=== PATIENT | male | born 1955 | race Caucasian/White ===

== ENCOUNTER 2017-08-30 10:30 | Inpatient (IN) | payer BC ==
[~2017-08-30] VITALS: Ht 182.9 cm; Wt 97.5 kg
[2017-08-30 11:59] LABS: CHLORIDE 109 mEq/L (99-109); POTASSIUM 4.5 mEq/L (3.7-5.4); SODIUM 144 mEq/L (136-147)
[2017-08-30 12:01] LABS: GLUCOSE 214 mg/dL (70-99); HEMATOCRIT 32.1 % (38.0-50.0); HEMOGLOBIN 9.9 G/DL (12.5-16.6); MCH 20.3 PG (29.0-34.0); MCHC 30.8 G/DL (30.0-36.0); MCV 65.9 FL (86-99); PLATELET COUNT 145 K/uL (156-360); RBC DIS.WIDTH-SD 36.2 % (39-53); RED BLOOD COUNT 4.87 M/uL (4.00-5.50); WHITE BLOOD COUNT 9.5 K/uL (4.1-10.2)
[2017-08-30 12:05] LABS: CREATININE 1.7 mg/dL (0.6-1.3); GFR ESTIMATE (CALCULATED) 43 mL/min/ (58.99-99999)
[2017-08-30 12:06] LABS: UREA NITROGEN (BUN) 32 mg/dL (9-23)
[2017-08-30 12:56] LABS: INTER. NORMALIZED RATIO 1.1
[2017-08-30 13:12] LABS: ALBUMIN 4.3 g/dL (3.2-4.8); CHLORIDE 110 mEq/L (99-109); POTASSIUM 4.4 mEq/L (3.7-5.4); SODIUM 144 mEq/L (136-147)
[2017-08-30 13:14] LABS: GLUCOSE 180 mg/dL (70-99); TOTAL PROTEIN 6.8 g/dL (6.4-8.3)
[2017-08-30 13:16] LABS: TOTAL BILIRUBIN 0.7 mg/dL (0.0-1.0)
[2017-08-30 13:18] LABS: ALKALINE PHOSPHATASE 73 IU/L (3-129); CREATININE 1.6 mg/dL (0.6-1.3); GFR ESTIMATE (CALCULATED) 47 mL/min/ (58.99-99999)
[2017-08-30 13:19] LABS: UREA NITROGEN (BUN) 31 mg/dL (9-23)
[2017-08-30 13:20] LABS: AST (GOT) 24 IU/L (2-34)
[2017-08-30 13:21] LABS: ALT (GPT) 26 IU/L (3-49)
[2017-08-30] MEDS ORDERED: TACROLIMUS ANH0.5 MG PO (14:27)
[2017-08-30] MEDS ORDERED: FOLIC ACID1 MG PO (14:28)
[2017-08-30] MEDS ORDERED: ROSUVASTATIN CA10 MG PO (14:28)
[2017-08-30] MEDS ORDERED: AMLODIPINE BESY10 MG PO (14:29)
[2017-08-30] MEDS ORDERED: METFORMIN HCL500 MG PO (14:29)
[2017-08-30] MEDS ORDERED: MULTIVITAMIN1 EAC2 PO (14:30)
[2017-08-30] MEDS ORDERED: ASPIRIN81 M2 PO (14:30)
[2017-08-30] MEDS ORDERED: PRILOSEC20 MG PO (14:31)
[2017-08-30 16:22] LABS: HEMATOCRIT 28.2 % (38.0-50.0); HEMOGLOBIN 8.9 G/DL (12.5-16.6); MCV 65.1 FL (86-99)
[2017-08-30 19:57] VITALS: BP 152/88
[2017-08-30 20:21] LABS: HEMATOCRIT 28.4 % (38.0-50.0); HEMOGLOBIN 8.7 G/DL (12.5-16.6); MCV 66.2 FL (86-99)
[2017-08-30 23:50] VITALS: BP 140/90
[2017-08-31 00:52] LABS: HEMATOCRIT 27.7 % (38.0-50.0); HEMOGLOBIN 8.6 G/DL (12.5-16.6); MCV 66.1 FL (86-99)
[2017-08-31 04:15] VITALS: BP 168/77
[2017-08-31 05:36] LABS: HEMATOCRIT 28.1 % (38.0-50.0); HEMOGLOBIN 8.4 G/DL (12.5-16.6); MCH 19.7 PG (29.0-34.0); MCHC 29.9 G/DL (30.0-36.0); PLATELET COUNT 120 K/uL (156-360); RBC DIS.WIDTH-CV 15.9 % (11.8-14.6); RBC DIS.WIDTH-SD 36.6 % (39-53); RED BLOOD COUNT 4.26 M/uL (4.00-5.50); WHITE BLOOD COUNT 5.5 K/uL (4.1-10.2)
[2017-08-31 06:27] LABS: CHLORIDE 112 MEQ/L (99-109); CREATININE 1.3 MG/DL (0.6-1.3); GFR ESTIMATE (CALCULATED) > 59 mL/min/ (58.99-99999); GLUCOSE 148 mg/dL (70-99); SODIUM 144 MEQ/L (136-147); UREA NITROGEN (BUN) 20 mg/dL (9-23)
[2017-08-31 07:10] VITALS: BP 119/66
[2017-08-31 11:52] VITALS: BP 149/78
[2017-08-31 13:01] LABS: HEMOGLOBIN 8.7 G/DL (12.5-16.6); MCV 65.9 FL (86-99)
[2017-08-31 15:00] VITALS: BP 127/73
[2017-08-31 19:37] LABS: HEMATOCRIT 29.2 % (38.0-50.0); MCV 66.4 FL (86-99)
[2017-08-31 21:00] VITALS: BP 156/74
[2017-09-01] VITALS (7 sets, daily range): BP systolic 123–156; BP diastolic 65–80
[2017-09-01 06:04] LABS: CHLORIDE 112 MEQ/L (99-109); CREATININE 1.3 MG/DL (0.6-1.3); GFR ESTIMATE (CALCULATED) > 59 mL/min/ (58.99-99999); GLUCOSE 145 mg/dL (70-99); POTASSIUM 4.8 MEQ/L (3.7-5.4); SODIUM 145 MEQ/L (136-147); UREA NITROGEN (BUN) 15 mg/dL (9-23)
[2017-09-02 04:25] VITALS: BP 124/58
[2017-09-02 06:09] LABS: HEMATOCRIT 28.1 % (38.0-50.0); HEMOGLOBIN 8.6 G/DL (12.5-16.6); MCH 20.2 PG (29.0-34.0); MCHC 30.6 G/DL (30.0-36.0); MCV 66.1 FL (86-99); RBC DIS.WIDTH-CV 16.2 % (11.8-14.6); RBC DIS.WIDTH-SD 37.1 % (39-53); RED BLOOD COUNT 4.25 M/uL (4.00-5.50); WHITE BLOOD COUNT 5.7 K/uL (4.1-10.2)
[2017-09-02 06:21] LABS: CHLORIDE 111 MEQ/L (99-109); CREATININE 1.4 MG/DL (0.6-1.3); GFR ESTIMATE (CALCULATED) 54 mL/min/ (58.99-99999); GLUCOSE 155 mg/dL (70-99); MAGNESIUM 1.7 mg/dl (1.3-2.7); PLAT.SUFFICIENCY DECREASED; PLATELET COUNT 129 K/uL (156-360); POTASSIUM 4.8 MEQ/L (3.7-5.4); SODIUM 143 MEQ/L (136-147); UREA NITROGEN (BUN) 13 mg/dL (9-23)
[2017-09-02 08:18] VITALS: BP 153/70
[2017-09-02 11:25] VITALS: BP 125/60
[2017-09-02] MEDS ORDERED: CEFTIN500 MG PO (11:46)
[2017-09-02] MEDS ORDERED: TESSALON200 MG PO (12:08)
== END 2017-09-02 13:39 | disposition home or self-care (01) | DRG 167 ==
LOC: EME 10:30 → EDOF 13:19 → ENRESERV 13:22 → 4EAST 19:49 → ENPENDDIS 09-02 → 4EAST 09-02 13:39
PROVIDERS: Emergency Medicine; Hospitalist; Internal Medicine
DX: J18.9 Pneumonia, unspecified organism (principal); R04.2 Hemoptysis; D69.6 Thrombocytopenia, unspecified; D56.9 Thalassemia, unspecified; E11.9 Type 2 diabetes mellitus without complications; E78.5 Hyperlipidemia, unspecified; F10.21 Alcohol dependence, in remission; Z94.4 Liver transplant status; Z79.84 Long term (current) use of oral hypoglycemic drugs
CPT/HCPCS: 71046; 71260; 80048; 80053; 82565; 82948; 83605; 83735; 84520; 85014; 85018; 85027; 85610; 85730; 86850; 86900; 86901; 87040; 87070; 87116; 87205; 87206; 87278; 88108; 88305; 99281; 99285; J0456; J0696; J1956; J2250; J2550; J7030; J7507